=== PATIENT | male | born 1980 | race Two or more races ===

== ENCOUNTER 2019-10-06 17:38 | Inpatient (IN) | payer SELFPAY ==
[~2019-10-06] VITALS: Ht 157.5 cm; Wt 68.0 kg
[2019-10-06] MEDS ORDERED: VISCOUS LIDOCAINE 2% 15 ML UDC PO STA (18:16)
[2019-10-06] MEDS ORDERED: SODIUM CHLORIDE 0.9% 1,000 ML IV ONE (18:16)
[2019-10-06] MEDS ORDERED: MAGNESIUM/ALUMINUM HYDROXIDE/SIMETHICONE 30ML UDC PO STA (18:16)
[2019-10-06] MEDS ORDERED: ONDANSETRON HCL 4MG/2ML INJ IV STA (18:16)
[2019-10-06 18:50] LABS: MEAN CORPUSCULAR HEMOGLOBIN 13.5 pg (28.0-32.0); MEAN CORPUSCULAR VOLUME 51.4 fL (80.0-94.0); MEAN PLATELET VOLUME 8.7 fl (7.4-10.4); PLATELET 333 x1000/uL (130-400); RED CELL DISTRIBUTION WIDTH 24.3 % (11.6-14.6)
[2019-10-06 18:52] LABS: CHLORIDE 107 mEq/L (98-107)
[2019-10-06 18:53] LABS: INR 1.1; PROTHROMBIN TIME 11.4 sec (9.6-11.0)
[2019-10-06 18:55] LABS: HEMATOCRIT. 13.4 % (42.0-52.0); HEMOGLOBIN. 3.5 g/dL (14.0-18.0)
[2019-10-06] MEDS ORDERED: FAMOTIDINE 20MG/2ML VIAL IV NR (19:30)
[2019-10-06 20:14] LABS: NUCLEATED RED BLOOD CELLS 4 /100 WBC; PLATELET ESTIMATE NORMAL
[2019-10-06] MEDS ORDERED: ONDANSETRON HCL 4MG/2ML INJ IV PRN (21:45)
[2019-10-06 22:43] LABS: CLARITY URINE CLEAR (CLEAR); COLOR URINE YELLOW (YELLOW); KETONES URINE NEGATIVE (NEGATIVE); LEUKOCYTE ESTERASE URINE NEGATIVE (NEGATIVE); NITRITE URINE NEGATIVE (NEGATIVE); OCCULT BLOOD URINE NEGATIVE (NEGATIVE); PH URINE 6.5 (4.5-8.0); PROTEIN URINE NEGATIVE (NEGATIVE); SPECIFIC GRAVITY URINE 1.008 (1.005-1.030); UROBILINOGEN URINE 0.2 E.U./dL (0.2-1.0)
[2019-10-06 23:53] VITALS: BP 133/82
[2019-10-07] VITALS (27 sets, daily range): BP systolic 102–138; BP diastolic 31–82
[2019-10-07] MEDS: MORPHINE SULFATE 2 MG/ML CPJ (NOT FOR IM USE) IV PRN (00:54)
[2019-10-07] MEDS ORDERED: PANTOPRAZOLE 80 MG in SODIUM CHLORIDE 0.9% 100 ML IV SCH (01:00)
[2019-10-07] MEDS: PANTOPRAZOLE 80 MG in SODIUM CHLORIDE 0.9% 100 ML IV SCH ×3 (03:12→21:58)
[2019-10-07 08:03] LABS: CHLORIDE 106 mEq/L (98-107)
[2019-10-07 08:39] LABS: MEAN CORPUSCULAR HEMOGLOBIN 16.8 pg (28.0-32.0); MEAN CORPUSCULAR VOLUME 57.7 fL (80.0-94.0); MEAN PLATELET VOLUME 8.7 fl (7.4-10.4); PLATELET 255 x1000/uL (130-400); RED BLOOD CELL COUNT 3.45 mill/uL (4.7-6.1); RED CELL DISTRIBUTION WIDTH 31.3 % (11.6-14.6)
[2019-10-07 08:58] LABS: HEMATOCRIT. 19.9 % (42.0-52.0); HEMOGLOBIN. 5.8 g/dL (14.0-18.0)
[2019-10-07 11:23] LABS: TOTAL IRON BINDING CAPACITY 487 ug/dL (250-450)
[2019-10-07] MEDS ORDERED: INFLUENZA VIRUS VACCINE(AFLURIA) 0.5ML SYR IM ONE (12:00)
[2019-10-07] MEDS: FERROUS SULFATE 325MG TABLET PO SCH ×2 (12:38→18:19)
[2019-10-07] MEDS: DEXT 5%/0.45% NACL 1000ML 1,000 ML IV SCH ×2 (13:20→21:59)
[2019-10-07 13:35] LABS: NUCLEATED RED BLOOD CELLS 1 /100 WBC
[2019-10-07 13:38] LABS: PLATELET ESTIMATE NORMAL
[2019-10-07 20:28] LABS: HEMATOCRIT 27.1 % (42.0-52.0); HEMOGLOBIN 8.8 g/dL (14.0-18.0)
[2019-10-08] VITALS: BP 113/46
[2019-10-08 01:59] VITALS: BP 118/62
[2019-10-08] MEDS: DEXT 5%/0.45% NACL 1000ML 1,000 ML IV SCH (02:40)
[2019-10-08 04:00] VITALS: BP 101/51
[2019-10-08] MEDS: MORPHINE SULFATE 2 MG/ML CPJ (NOT FOR IM USE) IV PRN (06:18)
[2019-10-08 06:49] LABS: HEMATOCRIT 29.5 % (42.0-52.0); HEMOGLOBIN 9.4 g/dL (14.0-18.0)
[2019-10-08 07:36] VITALS: BP 145/79
[2019-10-08] MEDS ORDERED: FERR-71 PO (07:48)
[2019-10-08] MEDS ORDERED: ESOM20CA PO (07:48)
[2019-10-08] MEDS ORDERED: DOCU-286 MT (07:49)
[2019-10-08 08:00] VITALS: BP 145/79
== END 2019-10-08 08:36 | disposition home or self-care (01) | DRG 253 ==
LOC: ER 17:38 → 3WST 20:18 → ENRESERV 22:10
PROVIDERS: ADMIT Hospitalist; ATTEND Hospitalist
PROC: 30233N1 Transfusion of Nonautologous Red Blood Cells into Peripheral Vein, Percutaneous Approach (ICD-10-PCS; principal; 2019-10-06)
DX: K92.2 Gastrointestinal hemorrhage, unspecified (principal); D64.9 Anemia, unspecified; N20.0 Calculus of kidney
CPT/HCPCS: 36415; 74176; 80076; 81003; 82607; 82728; 82746; 83540; 83550; 85014; 85018; 86850; 86900; 86920; 90686; 93970; 99291; C9113; J2270; J2405; J3490; J7030; J7040; J7050; P9016; P9021